=== PATIENT | female | born 1965 | race Caucasian/White ===

== ENCOUNTER 2018-07-26 10:32 | Outpatient (CLI) | payer OTHER, SELFPAY ==
--- NOTE | 2018-07-26 15:40 | DI.RAD_ITS ---
SYMPTOM/DIAGNOSIS: CHRONIC RT KNEE PAIN, G89.29 RIGHT KNEE: There is mild narrowing of the medial femoral tibial joint space and periarticular spurring as well as mild sclerosis. Slight spurring is seen from the lateral femoral condyle and lateral tibial plateau as well as tibial spines and femoral intercondylar notch. Mild spurring is seen at the patellofemoral joint. No joint effusion is visible. The bones appear normally mineralized. IMPRESSION: Mild to moderate degenerative changes of the medial femoral tibial joint.
== END 2018-07-26 10:52 ==
PROVIDERS: PCP Family Medicine; Visit Provider Internal Medicine
DX: M25.561 Pain in right knee (principal); M17.11 Unilateral primary osteoarthritis, right knee; G89.29 Other chronic pain
CPT/HCPCS: 73562

== ENCOUNTER 2018-08-25 09:14 | Outpatient (CLI) | payer OTHER, SELFPAY ==
--- NOTE | 2018-08-25 09:11 | DI.RAD_ITS ---
SYMPTOM/DIAGNOSIS: RT KNEE PAIN RIGHT KNEE: Two views. Comparison is made with 07/26/18. There is moderate narrowing and periarticular spurring in the medial femoral tibial joint space. There is mild periarticular spurring of the lateral femoral tibial joint. The bones are intact and normally mineralized. IMPRESSION: Moderate degenerative changes of the right knee.
== END 2018-08-25 09:34 ==
PROVIDERS: PCP Family Medicine; Visit Provider Student in an Organized Health Care Education/Training Program
DX: M25.561 Pain in right knee (principal); M17.11 Unilateral primary osteoarthritis, right knee
CPT/HCPCS: 73560

== ENCOUNTER 2018-09-05 18:44 | Outpatient (REF) | payer OTHER, SELFPAY ==
[2018-09-05 19:52] LABS: ALT 43 U/L (12-78); AST 23 U/L (15-37); Albumin 3.9 g/dL (3.4-5.0); Alkaline Phosphatase 40 U/L (46-116); Anion Gap 11.6 mmol/L (3-11); BUN 18 mg/dL (7-18); Bilirubin, Total 0.4 mg/dL (0.2-1.0); C-Reactive Protein 0.14 mg/dL (0.0-0.3); CO2 26.4 mmol/L (21.0-32.0); CREATININE 0.83 mg/dL (0.55-1.02); Chloride 99 mmol/L (98-107); Glucose 78 mg/dL (70-100); Potassium 3.7 mmol/L (3.5-5.1); Sodium 137 mmol/L (136-145); Total Protein 7.1 g/dL (6.4-8.2)
[2018-09-05 20:25] LABS: Bilirubin Negative (Negative); Blood Negative (Negative); Clarity Clear; Glucose Negative (Negative); Ketones Negative (Negative); Leukocyte Esterase Small (Negative); Nitrite Negative (Negative); Specific Gravity 1.015 (1.005-1.025); Urobilinogen 0.2 EU/dL (Up TO 0.2); pH 6.5 (5-8)
[2018-09-05 20:42] LABS: Bacteria Few HPF (Negative); C & S Indicated? Yes; Casts Negative LPF (Negative); Crystals Negative HPF (Negative); Epithelial Cells Few HPF (Negative); Mucus Negative (Negative); RBC Negative (0-2); WBC 20-50 HPF (0-5)
[2018-09-05 23:07] LABS: Abs Immature Grans 0.01 k/cumm (0.0-0.09); Absolute Basophil Count 0.02 k/cumm (0.0-0.2); Absolute Eosinophil Count 0.31 k/cumm (0.0-0.7); Absolute Lymphocyte Count 2.99 k/cumm (1.2-3.4); Absolute Monocyte Count 0.82 k/cumm (0.11-0.7); Absolute Neutrophil Count 3.54 k/cumm (1.2-6.7); Basophils % 0.3; HCT 37.4 % (36.0-46.0); HGB 12.8 g/dL (12.0-15.5); Immature Grans % 0.1; Lymphocytes % 38.9; Mean Corp. HGB Concentration 34.2 g/dL (32.0-36.0); Mean Corpuscular Hemoglobin 30.6 pg (27.0-33.0); Mean Corpuscular Volume 89.5 fL (80-95); Mean Platelet Volume 11.8 fL (8.0-11.0); Monocytes % 10.7; Platelet Count 186 x1000/uL (130-400); RBC 4.18 m/cumm (4.00-5.20); RBC Distribution Width 13.2 % (11.7-14.6); White Blood Cell Count 7.69 k/cumm (4.4-10.8)
[2018-09-06 13:21] LABS: Calcium 9.1 mg/dL (8.5-10.1)
[2018-09-07 11:22] LABS: C3 Complement 102 mg/dL (81-157); C4 Complement 22 mg/dL (13-39)
== END 2018-09-05 19:04 ==
LOC: LBN 18:44
PROVIDERS: PCP Family Medicine; Visit Provider Internal Medicine
DX: M35.1 Other overlap syndromes (principal); I10 Essential (primary) hypertension
CPT/HCPCS: 80053; 81003; 81015; 85025; 86140; 86160; 87086

== ENCOUNTER 2018-10-13 00:14 | Outpatient (CLI) | payer OTHER, SELFPAY ==
--- NOTE | 2018-10-13 13:30 | DI.MAMMO_ITS ---
SYMPTOM/DIAGNOSIS: SCREENING, Z12.31 MAMMOGRAMS: Mammograms were interpreted according to the usual protocol including computer analysis with CAD system, tomosynthesis and C view imaging. Comparison is made with the prior examinations. No suspicious masses or microcalcifications are seen. There is no definite evidence of malignancy. IMPRESSION: Negative mammogram. Routine screening is recommended. Category 1 , breast density B. MQSA ASSESSMENT OF FINDINGS: Negative. Category 1. Patient will receive a letter notifying them of these results. BI-RADS category B. There are scattered areas of fibroglandular density.
== END 2018-10-13 00:34 ==
PROVIDERS: PCP Family Medicine; Visit Provider Family Medicine
DX: Z12.31 Encounter for screening mammogram for malignant neoplasm of breast (principal)
CPT/HCPCS: 77063; 77067

== ENCOUNTER 2019-11-08 11:45 | Outpatient (CLI) | payer OTHER, SELFPAY ==
--- NOTE | 2019-11-08 11:36 | DI.RAD_ITS ---
EXAM: XR KNEE LT 2V AP,LAT CLINICAL HISTORY: knee pain TECHNIQUE: The study was performed according to the usual protocol. COMPARISON: XR knee RT 2V AP,lat from 08/25/2018 FINDINGS: Two views were obtained. There are mild marginal osteophytes of all 3 joints of the knee. There may be mild narrowing of cartilaginous joint spaces. This is difficult to evaluate due to obliquity on t hese images. No other significant bony abnormality seen.
--- NOTE | 2019-11-08 11:42 | DI.RAD_ITS ---
EXAM: XR STANDING ALIGNMENT CLINICAL HISTORY: knee pain COMPARISON: No exams were available for comparison FINDINGS: AP views of both lower extremities were obtained using standing alignment protocol. There are mild d egenerative changes of both hips. There is a calcified uterine fibroid. There are marked degenerati ve changes of the medial tibiofemoral joints bilaterally.
== END 2019-11-08 12:05 ==
PROVIDERS: PCP Family Medicine; Visit Provider Physician Assistant
DX: M25.562 Pain in left knee (principal); M25.762 Osteophyte, left knee; M16.0 Bilateral primary osteoarthritis of hip; D25.9 Leiomyoma of uterus, unspecified
CPT/HCPCS: 73560; 77073

== ENCOUNTER 2020-04-05 03:20 | Outpatient (REF) | payer OTHER, SELFPAY ==
--- NOTE | 2020-04-04 15:20 | PAPFT_PTH ---
PATIENT: Reyna Isbell LOC: [facility] U#:[id number] AGE/SX: 54/F ROOM: RE04/05/[address]: SIMRAN Alexandra : 1965 BED: DIS: 04/05/2020 SPEC #: [id number] RECD: 04/07/20 12:58 STATUS: DEVI REQ #: [id number] KIMBERLY: 04/04/20 15:[address]: Kimber Fernández DEPT: [facility] Cytology RECD BY: Nayla Owusu ENTERED: 04/07/20 12:59 SP TYPE: PAPFT OTHR DR: Dl Copeland MD Tissues: 1 - CX/ENDOCX FOR PAP SMEARS Procedures: PAP THIN PREP/UVM Screening HPV DNA PROBE Comments: [id number]
== END 2020-04-05 03:40 ==
LOC: LBN 03:20
PROVIDERS: PCP Family Medicine; Visit Provider Nurse Practitioner Family
DX: Z12.4 Encounter for screening for malignant neoplasm of cervix (principal); Z11.51 Encounter for screening for human papillomavirus (HPV); R87.610 Atypical squamous cells of undetermined significance on cytologic smear of cervix (ASC-US)
CPT/HCPCS: 88142; 87624

== ENCOUNTER 2020-07-01 08:19 | Outpatient (REF) | payer OTHER, SELFPAY ==
[2020-07-01 20:49] LABS: HCT 38.3 % (36.0-46.0); HGB 12.6 g/dL (11.2-15.7); MCH 30.3 pg (27.0-33.0); MCHC 32.9 % (32.0-36.0); MCV 92.1 fL (80-95); MPV 11.6 fL (8.0-11.0); Platelet Count 215 10^3/uL (130-400); RBC 4.16 10^6/uL (3.93-5.22); RDW-SD 40.4 fL; WBC 5.23 10^3/uL (4.4-10.8)
[2020-07-01 20:56] LABS: ALT 51 U/L (14-59); AST 27 U/L (15-37); Albumin 4.1 g/dL (3.4-5.0); Alkaline Phosphatase 31 U/L (46-116); BUN 22 mg/dL (7-18); Bilirubin, Total 0.5 mg/dL (0.2-1.0); C-Reactive Protein 0.08 mg/dL (0.0-0.3); CREATININE 0.83 mg/dL (0.55-1.02); Calcium 9.2 mg/dL (8.5-10.1); Chloride 101 mmol/L (98-107); Glucose 98 mg/dL (74-106); Potassium 4.7 mmol/L (3.5-5.1); Sodium 136 mmol/L (136-145); Total Protein 7.5 g/dL (6.4-8.2)
[2020-07-01 21:42] LABS: ESR 22 mm/hr (0-30)
== END 2020-07-01 08:39 ==
LOC: LBN 08:19
PROVIDERS: Student in an Organized Health Care Education/Training Program; PCP Family Medicine; Visit Provider Nurse Practitioner
DX: M17.0 Bilateral primary osteoarthritis of knee (principal); M35.1 Other overlap syndromes
CPT/HCPCS: 80053; 85027; 85652; 86140

== ENCOUNTER 2020-07-11 08:13 | Outpatient (CLI) | payer OTHER, SELFPAY ==
[2020-07-12 14:40] LABS: COVID-19 RT-PCR Result NEGATIVE (Negative)
== END 2020-07-11 08:33 ==
PROVIDERS: Student in an Organized Health Care Education/Training Program; PCP Family Medicine; Visit Provider Family Medicine
DX: Z11.59 Encounter for screening for other viral diseases (principal); Z01.818 Encounter for other preprocedural examination
CPT/HCPCS: U0003

== ENCOUNTER 2020-07-15 08:25 | Observation (INO) | payer OTHER, SELFPAY ==
[2020-07-15] VITALS (11 sets, daily range): BP systolic 89–123; BP diastolic 49–73; PULSE 47–71; RESP 13–18; TEMP 35.7–37.1; O2SAT 96–100
[2020-07-15] MEDS: Gabapentin 300 MG CAP PO ×2 (09:07→21:55)
[2020-07-15] MEDS: Celecoxib 200 MG CAP 400 MG PO (09:07)
[2020-07-15] MEDS: Acetaminophen 500 MG TAB 1000 MG PO ×3 (09:07→19:44)
[2020-07-15] MEDS: Lactated Ringers 1,000 ML 80 ML IV (09:08)
--- NOTE | 2020-07-15 09:45 | W.PM.DS.N ---
Documented by User: MARIE Anderson 07/15/20 09:46 Discharge Plan Disposition Patient Disposition: HOME Condition: Good Discharge Details Reason For Visit: BILATERAL TKA Admit Date/Time: 07/15/20 08:25 Admit Provider: Alphonso Gonsalves Attending Provider: Alphonso Gonsalves Primary Care Provider: Dl Copeland Hospital Course Hospital Course: Patient was admitted to the medical/surgical floor following the procedure. The surgery was tolerated well without any notable medical, surgical, or anesthetic complications. Mobilization began postoperatively. The moore catheter was removed and she was voiding spontaneously. Initial mobilization was complicated by some lightheadedness and resultant hypotension. However, this responded with rest. A postoperative hemoglobin was checked, resulted at 9.7. She responded to fluid bolus and some time with minimal lightheadedness later on postoperative day #1. Physical therapy worked with the patient and was cleared for discharge home. No acute medical issues. Pain was controlled on oral regimen. Home Meds and New Rx's Prescriptions: New acetaminophen [Tylenol Extra Strength] 500 mg tablet 500 mg PO Q6H PRNQty: 90 RF: 0 ibuprofen 600 mg tablet 600 mg PO TID Qty: 90 RF: 0 oxycodone 5 mg tablet 5 mg PO Q4H PRNQty: 18 RF: 0 pantoprazole [Protonix] 40 mg tablet,delayed release (DR/EC) 40 mg PO DAILY Qty: 30 RF: 0 rivaroxaban 10 mg tablet 10 mg PO QPM Qty: 30 RF: 0 docusate sodium [Colace] 100 mg capsule 100 mg PO BID PRNQty: 10 RF: 0 gabapentin 300 mg capsule 300 mg PO QHS Qty: 14 RF: 0 Continued hydroxychloroquine [Plaquenil] 200 MG tablet 400 mg PO DAILY RF: 0 fluticasone propionate 16 GM spray,suspension 2 spry NS DAILY Qty: 3 RF: 3 Discontinued ibuprofen 200 mg Tablet 800 mg PO PRN PRNRF: 0 Discharge Instructions Additional Instructions: Total Knee Discharge Instructions Activity: The most important activity is to walk. You should try to take short walks a few times a day. It is important that when resting you work on keeping the knee straight. Avoid putting a pillow behind the knee as this will encourage flexion. Work on range of motion exercises as provided by Physical Therapy. - Start outpatient physical therapy within 2 weeks. - You should wear the GUERITA hose on both legs for 2 weeks. Dressing: Keep the surgical dressing in place for at least one week. After the first week it may be removed and replace with light gauze and tape or nothing. It may get wet after 3 days but avoid soaking the dressing. If it gets wet, just lightly pat dry. Medications: - You should take Tylenol and anti-inflammatory Ibuprofen as your primary pain control medications - You have been prescribed a stronger pain medication Oxycodone for breakthrough pain, take as needed as prescribed. - You have also been prescribed a stomach acid reduction agent Pantoprozole to help reduce stomach acid and reflux. - You will be taking Rivaroxaban 10mg daily for DVT prevention unless instructed otherwise. - You have Gabapentin to take at night for the first 14 days to treat nerve pain and restlessness. - If you have constipation you should take Colace or Miralax (both [id number]) - Colace was called in. It takes most people 3-4 days to have a bowel movement. Follow-up: 2 weeks Stand Alone Forms: Nursing Discharge Form Referrals: Alphonso Gonsalves MD [ [facility] STAFF PHYSICIAN] - 07/31/20 11:15 am Activity:: Activity as Tolerated Equipment/Supplies:: Walker Diet:: As Tolerated Discharge Orders Discharge Orders: Discharge Order (Routine); Ordered 07/16/20 Ordered By: Alphonso Gonsalves DS: Data Vitals/I&O Vitals and I&O: Vital Signs Temperature 97.5 F L 07/15/20 08:57 Pulse 71 07/15/20 08:57 Pulse Rhythm Regular 07/15/20 08:57 Respiratory Rate 18 07/15/20 08:57 Respiratory Effort 07/15/20 08:57 Respiratory Depth Normal 07/15/20 08:57 Blood Pressure 118/73 07/15/20 08:57 Pulse Oximetry 97 07/15/20 08:57 Oxygen Delivery Method Room Air 07/15/20 08:57 Oxygen Flow Rate 0 07/15/20 08:57 Intake & Output 07/14/20 07/14/20 07/15/20 11:59 23:59 11:59 Weight 205 lb 11.06 oz [facility] [place] Medical History (Updated 07/16/20 @ 09:28 by Alphonso Gonsalves MD) Adopted (Inactive) Condyloma latum in female (Acute) Dermatitis (Inactive 06/22/17) [facility] [place]-[facility] MCTD (mixed connective tissue disease) (Acute) Social History Smoking/Tobacco Use Status: Never Alcohol Intake: current Alcohol Intake frequency: holidays/special occasions only Drug use: Never Substance use type: does not use 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 Documented by User: Alphonso Gonsalves MD 07/16/20 10:16 Date of service: 07/16/20 Time of Service: 12:27 DS: Diagnosis Discharge Diagnosis (1) Primary osteoarthritis of right knee: Status: Acute (2) Primary osteoarthritis of left knee: Status: Acute Discharge Plan Disposition Patient Disposition: HOME Condition: Good Discharge Details Reason For Visit: BILATERAL TKA Admit Date/Time: 07/15/20 08:25 Admit Provider: Alphonso Gonsalves Attending Provider: Alphonso Gonsalves Primary Care Provider: Dl Copeland Hospital Course Hospital Course: Patient was admitted to the medical/surgical floor following the procedure. The surgery was tolerated well without any notable medical, surgical, or anesthetic complications. Mobilization began postoperatively. The moore catheter was removed and she was voiding spontaneously. Initial mobilization was complicated by some lightheadedness and resultant hypotension. However, this responded with rest. A postoperative hemoglobin was checked, resulted at 9.7. She responded to fluid bolus and some time with minimal lightheadedness later on postoperative day #1. Physical therapy worked with the patient and was cleared for discharge home. No acute medical issues. Pain was controlled on oral regimen. Home Meds and New Rx's Prescriptions: New acetaminophen [Tylenol Extra Strength] 500 mg tablet 500 mg PO Q6H PRNQty: 90 RF: 0 ibuprofen 600 mg tablet 600 mg PO TID Qty: 90 RF: 0 oxycodone 5 mg tablet 5 mg PO Q4H PRNQty: 18 RF: 0 pantoprazole [Protonix] 40 mg tablet,delayed release (DR/EC) 40 mg PO DAILY Qty: 30 RF: 0 rivaroxaban 10 mg tablet 10 mg PO QPM Qty: 30 RF: 0 docusate sodium [Colace] 100 mg capsule 100 mg PO BID PRNQty: 10 RF: 0 gabapentin 300 mg capsule 300 mg PO QHS Qty: 14 RF: 0 Continued hydroxychloroquine [Plaquenil] 200 MG tablet 400 mg PO DAILY RF: 0 fluticasone propionate 16 GM spray,suspension 2 spry NS DAILY Qty: 3 RF: 3 Discontinued ibuprofen 200 mg Tablet 800 mg PO PRN PRNRF: 0 Discharge Instructions Additional Instructions: Total Knee Discharge Instructions Activity: The most important activity is to walk. You should try to take short walks a few times a day. It is important that when resting you work on keeping the knee straight. Avoid putting a pillow behind the knee as this will encourage flexion. Work on range of motion exercises as provided by Physical Therapy. - Start outpatient physical therapy within 2 weeks. - You should wear the GUERITA hose on both legs for 2 weeks. Dressing: Keep the surgical dressing in place for at least one week. After the first week it may be removed and replace with light gauze and tape or nothing. It may get wet after 3 days but avoid soaking the dressing. If it gets wet, just lightly pat dry. Medications: - You should take Tylenol and anti-inflammatory Ibuprofen as your primary pain control medications - You have been prescribed a stronger pain medication Oxycodone for breakthrough pain, take as needed as prescribed. - You have also been prescribed a stomach acid reduction agent Pantoprozole to help reduce stomach acid and reflux. - You will be taking Rivaroxaban 10mg daily for DVT prevention unless instructed otherwise. - You have Gabapentin to take at night for the first 14 days to treat nerve pain and restlessness. - If you have constipation you should take Colace or Miralax (both [id number]) - Colace was called in. It takes most people 3-4 days to have a bowel movement. Follow-up: 2 weeks Stand Alone Forms: Nursing Discharge Form Referrals: Alphonso Gonsalves MD [ [facility] STAFF PHYSICIAN] - 07/31/20 11:15 am Activity:: Activity as Tolerated Equipment/Supplies:: Walker Diet:: As Tolerated Discharge Orders Discharge Orders: Discharge Order (Routine); Ordered 07/16/20 Ordered By: Alphonso Gonsalves DS: Summary Status at Discharge Functional status at discharge: uses cane/walker Overall status at discharge: patient is progressing back to baseline Mental Status: mental status grossly normal Speech and Movement: speech and movement normal Mood: congruent mood Affect: normal affect Exam Psych Mental Status: mental status grossly normal Speech and Movement: speech and movement normal Mood: congruent mood Affect: normal affect [facility] Medical History (Updated 07/16/20 @ 09:28 by Alphonso Gonsalves MD) Adopted (Inactive) Condyloma latum in female (Acute) Dermatitis (Inactive 06/22/17) [facility]-[facility] MCTD (mixed connective tissue disease) (Acute) Social History Smoking/Tobacco Use Status: Never Alcohol Intake: current Alcohol Intake frequency: holidays/special occasions only Drug use: Never Substance use type: does not use 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
[2020-07-15] MEDS: ceFAZolin 2 GM/50 ML BAG IVPB (10:50)
[2020-07-15] MEDS: Normal Saline 20 ML VIAL (11:30)
[2020-07-15] MEDS: Bupivacaine 0.25% Pres-Free 30 ML VIAL (11:30)
[2020-07-15] MEDS: Ketorolac 30 MG/ML VIAL (11:30)
--- NOTE | 2020-07-15 13:51 | W.PM.OP ---
Date of service: 07/15/20 Time of Service: 13:51 Operative Note Operative Note DATE OF PROCEDURE: 07/15/20 PRE-OP DIAGNOSIS: Bilateral Knee Osteoarthritis POST-OP DIAGNOSIS: same PROCEDURE: Bilateral Total Knee Replacement SURGEON: Alphonso Gonsalves INSPECTOR MACHINED PARTS: Gina Aldana ANESTHESIA: regional and spinal ESTIMATED BLOOD LOSS: 300 PATHOLOGY: none sent TOURNIQUET TIME: 0 COMPLICATIONS: None Patient was transported to: PACU Patient's condition: stable Implants: RIGHT: 1. Depuy Attune Cementless Cruciate Retaining Femoral Component, Size 5 2. Depuy Attune Cementless Rotating Platform Tibial Component, Size 4 3. Depuy Attune 5x10 CR/RP Poly 4. Depuy Attune Patellar Component, Size 35 LEFT: 1. Depuy Attune Cementless Cruciate Retaining Femoral Component, Size 5 2. Depuy Attune Cementless Rotating Platform Tibial Component, Size 4 3. Depuy Attune 5x5 CR/RP Poly 4. Depuy Attune Patellar Component, Size 35 Indications: I have seen Reyna in clinic for symptoms of bilateral knee arthritis, confirmed with radiographic findings. She has exhausted nonoperative methods and was having significant limitations in daily function and desired better function and less pain. I discussed the technical details of a knee replacement. I explained the risks of the procedure to include, but not limited to, bleeding, infection, pain, stiffness, fracture, damage to nerves and vessels, damage to muscles and tendons, loosening, need for repeat procedure, blood clot and cardiopulmonary demise. Despite these risks, Reyna elected to proceed. Findings: There was significant signs of arthritis throughout both knees. Both knees were similar with wear in all 3 compartments, most over the medial tibia as well as deformity of the medial aspect of the lateral femoral condyle. Procedure Description: Reyna was greeted in the preoperative holding area where the correct side was identified and marked. The consent was reviewed with the patient and signed. The history and physical was updated. All questions were answered. Preoperative medications were administered: Acetaminophen 1000mg, Celebrex 400mg, and Gabapentin 300mg. An adductor canal block of both knees was then administered by the anesthesia team in the PACU. Reyna was taken back to the operating room. A spinal anesthestic was then administered. The patient was placed into the supine position on the operating room table. A nonsterile tourniquet was placed high onto the leg but only used for cementing. Posts were placed for positioning during the procedure. All bony prominences were well padded. Prophylactic antibiotics in the form of Cefazolin were administered. 1g of Tranxemic Acid was given intravenously within 30 minutes of incision of the first knee, right knee. Both legs were then prepped with Chloraprep and draped in a standard fashion with impervious stockinette. A second prep with Chloraprep was performed prior to application of Iodine impregnated skin protection on the right knee while the left knee was left in the stockinette. A timeout to confirm correct identity, side and site, procedure, allergies, anesthesia, and medical concerns was performed. RIGHT KNEE: With the knee in some flexion, a midline incision was made overlying the knee. Full thickness skin flaps were raised once the extensor mechanism was encountered. These were raised medially and laterally. Any bleeding was controlled with electrocautery. Once the extensor mechanism was fully exposed, a medial parapatellar arthrotomy was performed in a flexed position. All bleeding from the arthrotomy and the geniculate arteries was coagulated. A medial subperiosteal peel was performed with electrocautery to the midcoronal plane. The fat pad was removed while keeping the patellar tendon protected. The anterior distal femur synovium was removed for later visualization. The ACL and PCL were resected and the anterior horn of the lateral meniscus was transected. The knee was then flexed with the patella everted. Using a step drill, and based on preoperative templating, the femoral canal was entered. This was done with a step drill without any difficulty. The intramedullary distal femoral cut guide was inserted, set to a 5 degree valgus cut and 9mm cut thickness. There was some irregularity to the distal, lateral femur, mostly over the medial surface. The distal femoral cut guide was then held in position and pinned. With the soft tissues protected, the distal cut was performed. This was passed over a few times to ensure a planar cut. I then turned attention to the tibia. The extramedullary guide was placed onto the leg. The distal aspect was slid medial to adjust for position of center of ankle and stay in line with shaft of the tibia. Approximately 3-5 degrees of posterior slope was kept in the proximal cutting guide. The center of the guide was aligned with the PCL. The stylus was used to assess cut thickness. The medial side, most involved side, was set for a 4mm cut, corresponding to 9mm laterally. This was then held in position and pinned into place with 2 additional pins and a cross pin for stability. The medial and lateral collateral ligaments were protected and the cut was performed. With this completed, it was assessed and noted to be thicker than planned, measuring 6-7mm over the medial aspect and 12 laterally. The guide was removed. A spacer block was inserted and the knee was brought into extension. The 10mm spacer block provided full extension, without hyperextension and with stability of both the medial and lateral collateral ligaments was assessed. The pins from the femur and the tibia were then removed. The distal femur was then sized. The anterior stylus was placed onto the lateral ridge of the anterior femur. This indicated a size 5 femur. The external rotation of the guide was adjusted to match the epicondylar axis, perpendicular to Joe?s line. The 4-in-1 cutting guide was the placed. The posterior medial femur cut was evaluated and appeared of good thickness. The spacer block was inserted underneath the cutting guide and stability was confirmed in 90 degrees of flexion. An nikolai wing was used to confirm appropriate position of the anterior cut to avoid notching. This cutting guide was ensured to be flush on the cut surface and then pinned into place with headed pins. While protecting the soft tissues, quad tendon, and collateral ligaments, the anterior and posterior cuts were performed with a saw. The central two pins were removed and the posterior and anterior chamfers were cut next. The notch-cutting guide was placed. This was pinned to lateralize the femoral component as much as possible while keeping it flush on the cut surface. This was then pinned into position. A reciprocating saw was used to make the notch cut. A rasp smoothed the cut surfaces. The medial and lateral menisci were removed. A trial femoral component was then inserted, impacted down to the cut surfaces, and the lug holes were drilled. A provisional trial tibial component was placed and the knee was brought through range of motion. There was noted to be excellent extension and flexion. There was no significant instability. The patella was tracking without thumbs. A size 10mm polyethylene component provided the best range of motion and stability with less than 2mm gapping with medial and lateral stress and full extension without significant hyperextension. The tibial cut surface was fully exposed. The tibia was then sized as a 4. The tibia had been previously marked during trialing to correspond to the center of the tibial component to help with rotation. The trial was aligned to this mendy, approximately rotated to the medial 1/3rd of the tibial tubercle. The trial was pinned into place. The tibia was prepared with a reamer and a keel punch and lug holes. The knee was then brought into extension and the patella was measured as 23mm. Using the patellar clamp and cut guide, this was resected to a flat surface with at least 13mm of thickness remaining. The size 35 patella fit the best. This was oriented and then clamped into position. The lugs were drilled. The trial components were removed. The final components were opened on the back table. The periosteal and capsular tissues, especially posteriorly, around the knee were then systematically injected with a periarticular cocktail consisting of 50cc 0.25% Marcaine, 30mg Ketorolac, 20cc of Exparal and 50cc of injectable saline. The knee was thoroughly irrigated with a pulse lavage and dried. Irrisept was also used to irrigate the tissues. On the back table, with the implants opened, the cement was mixed. One batche of high viscosity cement were prepared with vacuum assistance. After the cement was ready a small amount was placed on the cut surface of the patella and the patellar button was clamped into position and held. During this process attention was turned to the gutters of the knee and for all interfaces for any excess cement. While the cement was hardening, the cementless knee components were placed. Starting with the tibial component, the tibia was subluxed anteriorly and the lug holes of the component were lined up. The tibia was then impacted with an impactor and mallet until the tibial component was in contact with the tibia. The final polyethylene component was inserted. Then, the femoral component was inserted. The lug holes were aligned and the component was impacted into position. The knee was irrigated with Irrisept chlorhexadine solution. This was allowed to sit in the knee for 3 minutes. After the cement had finally cured, approximately 15min, the clamp was removed from the patella and the knee was taken through range of motion. The patella was tracking with a no-thumbs technique. The capsule was then reapproximated with a No. 1 Vicryl at multiple locations. The capsule was finally closed with a No. 2 Stratafix, barbed suture. The second dosing of 1g TXA was started. Deep tissues were then reapproximated with 0 Vicryl and 2-0 Vicryl. The skin was closed with a running 3-0 Monocryl in a subcuticular fashion. This was reinforced with skin glue. A Mepilex silver dressing was applied. LEFT KNEE: While Gina Aldana PA-C, was closing the skin and subcutaneous tissues of the right knee, proceed with the left knee. The stockinette was opened and the knee was prepped with ChloraPrep, followed by Ioban dressing. With the knee in some flexion, a midline incision was made overlying the knee. Full thickness skin flaps were raised once the extensor mechanism was encountered. These were raised medially and laterally. Any bleeding was controlled with electrocautery. Once the extensor mechanism was fully exposed, a medial parapatellar arthrotomy was performed in a flexed position. All bleeding from the arthrotomy and the geniculate arteries was coagulated. A medial subperiosteal peel was performed with electrocautery to the midcoronal plane. The fat pad was removed while keeping the patellar tendon protected. The anterior distal femur synovium was removed for later visualization. The ACL and PCL were resected and the anterior horn of the lateral meniscus was transected. The knee was then flexed with the patella everted. Large osteophytes from the tibia were removed. Large osteophytes from the femur were removed. Using a step drill, and based on preoperative templating, the femoral canal was entered. This was done with a step drill without any difficulty. The intramedullary distal femoral cut guide was inserted, set to a 5 degree valgus cut and 9 mm cut thickness. There was some irregularity, mostly on the medial surface of the lateral femoral condyle. The distal femoral cut guide was then held in position and pinned. With the soft tissues protected, the distal cut was performed. This was passed over a few times to ensure a planar cut. I then turned attention to the tibia. The extramedullary guide was placed onto the leg. The distal aspect was slid medial to adjust for position of center of ankle and stay in line with shaft of the tibia. Approximately 3-5 degrees of posterior slope was kept in the proximal cutting guide. The center of the guide was aligned with the PCL. The stylus was used to assess cut thickness. The medial side, most involved side, was set for a 2mm cut, corresponding 8 mm laterally. This was then held in position and pinned into place with 2 additional pins and a cross pin for stability. The medial and lateral collateral ligaments were protected and the cut was performed. With this completed, it was assessed and noted to be of appropriate dimensions. The guide was removed. A spacer block was inserted and the knee was brought into extension. The 5mm spacer block provided full extension, without hyperextension and with stability of both the medial and lateral collateral ligaments was assessed. The pins from the femur and the tibia were then removed. The distal femur was then sized. The anterior stylus was placed onto the lateral ridge of the anterior femur. This indicated a size 5 femur. The external rotation of the guide was adjusted to match the epicondylar axis, perpendicular to [place]?s line. The 4-in-1 cutting guide was the placed. The posterior medial femur cut was evaluated and appeared of good thickness. The spacer block was inserted underneath the cutting guide and stability was confirmed in 90 degrees of flexion. An nikolai wing was used to confirm appropriate position of the anterior cut to avoid notching. This cutting guide was ensured to be flush on the cut surface and then pinned into place with headed pins. While protecting the soft tissues, quad tendon, and collateral ligaments, the anterior and posterior cuts were performed with a saw. The central two pins were removed and the posterior and anterior chamfers were cut next. The notch-cutting guide was placed. This was pinned to lateralize the femoral component as much as possible while keeping it flush on the cut surface. This was then pinned into position. A reciprocating saw was used to make the notch cut. A rasp smoothed the cut surfaces. The medial and lateral menisci were removed. A trial femoral component was then inserted, impacted down to the cut surfaces, and the lug holes were drilled. A provisional trial tibial component was placed and the knee was brought through range of motion. There was noted to be excellent extension and flexion. There was no significant instability. The patella was tracking without thumbs. A size 5mm polyethylene component provided the best range of motion and stability with less than 2mm gapping with medial and lateral stress and full extension without significant hyperextension. The tibial cut surface was fully exposed. The tibia was then sized as a 4. The tibia had been previously marked during trialing to correspond to the center of the tibial component to help with rotation. The trial was aligned to this mendy, approximately rotated to the medial 1/3rd of the tibial tubercle. The trial was pinned into place. The tibia was prepared with a reamer and a keel punch and lug holes. The knee was then brought into extension and the patella was measured as 24mm. Using the patellar clamp and cut guide, this was resected to a flat surface with at least 13mm of thickness remaining. The size 35 patella fit the best. This was oriented and then clamped into position. The lugs were drilled. The trial components were removed. The final components were opened on the back table. The periosteal and capsular tissues, especially posteriorly, around the knee were then systematically injected with a periarticular cocktail consisting of 50cc 0.25% Marcaine, 30mg Ketorolac, 20cc of Exparal and 50cc of injectable saline. The knee was thoroughly irrigated with a pulse lavage and dried. Irrisept was also used to irrigate the tissues. On the back table, with the implants opened, the cement was mixed. One batche of high viscosity cement were prepared with vacuum assistance. After the cement was ready a small amount was placed on the cut surface of the patella and the patellar button was clamped into position and held. During this process attention was turned to the gutters of the knee and for all interfaces for any excess cement. While the cement was hardening, the cementless knee components were placed. Starting with the tibial component, the tibia was subluxed anteriorly and the lug holes of the component were lined up. The tibia was then impacted with an impactor and mallet until the tibial component was in contact with the tibia. The final polyethylene component was inserted. Then, the femoral component was inserted. The lug holes were aligned and the component was impacted into position. The knee was irrigated with Irrisept chlorhexadine solution. This was allowed to sit in the knee for 3 minutes. After the cement had finally cured, approximately 15min, the clamp was removed from the patella and the knee was taken through range of motion. The patella was tracking with a no-thumbs technique. The capsule was then reapproximated with a No. 1 Vicryl at multiple locations. The capsule was finally closed with a No. 2 Stratafix, barbed suture. Deep tissues were then reapproximated with 0 Vicryl and 2-0 Vicryl. The skin was closed with a running 3-0 Monocryl in a subcuticular fashion. This was reinforced with skin glue. A Mepilex silver dressing was applied along with a [id number] wrap applied to both knees. A CryoCuff was applied to both knees. Reyna was transferred to the hospital bed without difficulty an suffering no apparent complication. Reyna has a good prognosis. Physical therapy will start today and without restrictions, weight-bearing as tolerated. Rivaroxaban 10 mg daily will be used for DVT prophylaxis.
[2020-07-15] MEDS: ceFAZolin 1 GM/50 ML BAG IVPB (15:24)
--- NOTE | 2020-07-15 17:08 | IN_ITS ---
Date of service: 07/15/20 Time of Service: 17:08 PT Notes Visit Reasons: BILATERAL TKA Physical Therapy Inpatient Initial Evaluation Date: 07/15/2020 Referring Doctor: Alphonso Gonsalves MD PT Orders: PT CONSULT: Status post Ortho surgery Precautions: Fall. Standard. WBAT on BLE. Patient Profile/Admitting Diagnosis: Reyna is a 55-year-old female with primary bilateral osteoarthritis of the right and the left knee and is status post bilateral total knee arthroplasty on postoperative day 0. 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 She is independent with all aspects of ADLs without the need for an assistive ambulatory device nor adaptive equipment. 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 Equipment Owned/DME: None Subjective: Reyna reports being lightheaded when she first sat up on the edge of bed. Symptom got worse in the standing position and mobility assessment was deferred. After about half an hour, Reyna reports being better after having eaten supper. She is determined to try get up and walk and was happy that she did. Significant other present during both PT consult sessions. Objective: General Observation: Cryo/Cuff to bilateral knees. Mukesh wraps to bilateral knees. IV in the right UE. Mental Status: Alert and oriented x4 Pain: 3/10 in bilateral knees Vital Signs: Hypotensive episode at 9T/60 mmHg while seated in bed. Patient was too lightheaded to stay up for the standing blood pressure measurement on initial PT consult. ROM: Right Upper Extremity: Shoulder Flexion WFL. Shoulder abduction WFL. Elbow flexion WFL. Wrist flexion WFL. Opening and closing of hand WFL. Left Upper Extremity: Shoulder Flexion WFL. Shoulder abduction WFL. Elbow flexion WFL. Wrist flexion WFL. Opening and closing of hand WFL. Right Lower Extremity: Hip flexion WFL. Hip abduction WFL. Knee flexion 0 to 90 degrees. Ankle dorsiflexion WFL. Ankle plantarflexion WFL. Left Lower Extremity: Hip flexion WFL. Hip abduction WFL. Knee flexion 0 to 98 degrees. Ankle dorsiflexion WFL. Ankle plantarflexion WFL. Strength: Right Upper Extremity: Shoulder flexors 5/5. Shoulder abductors 5/5. Elbow flexors 5/5. Elbow extensors 5/5. Combine Operator strong. Left Upper Extremity: Shoulder flexors 5/5. Shoulder abductors 5/5. Elbow flexors 5/5. Elbow extensors 5/5. Combine Operator strong. Right Lower Extremity: Hip flexors 4/5. Hip abductors 5/5. Knee flexors 3-/5. Knee extensors 3+/5. Ankle dorsiflexors 5/5. Ankle plantarflexors 5/5. Left Lower Extremity:Hip flexors 4/5. Hip abductors 5/5. Knee flexors 3-/5. Knee extensors 3+/5. Ankle dorsiflexors 5/5. Ankle plantarflexors 5/5. Sensation: Numbness in both thighs reported but intact from knees down as to pain and light pressure. Bed Mobility/Transfers: Supine to sit standby assist Sit to supine standby assist Sit to stand contact-guard assist Stand to sit contact-guard assist Bed to chair contact-guard assist Gait: Deferred gait activity during first visit due to hypotensive episode during initial PT visit. For the second visit half an hour later, patient was able to tolerate about 250 feet of level surface ambulation using a front wheeled walker with contact-guard assist and IV pole management of PT and wheelchair follow of nurse Archuleta. Reciprocal step-through heel-toe gait pattern. No increase in pain reported in B knees. THERA EX: Education and training on gluteal setting, quadriceps setting, and ankle pumps be done 10-20 times every hour was done as well during the session. Balance: Static Sitting: Normal Dynamic Sitting: Normal Static Standing: Fair Dynamic Standing: Fair Special Tests: Mobility Limitations Standardized Measure [facility] AM-PAC 6 clicks Basic Mobility Inpatient Short Form: Raw Score: 18 CMS Score: 47% deficit Informed Consent/Education: Patient instructed in purpose of PT consult and plan of care. Assessment: Reyna demonstrates a need for a front wheeled walker and contact- guard assist for safety for all mobility ADL performance, faculty with walking, unsteadiness of gait, and decreased active knee range of motion due to postoperative status. Reyna is a 55-year-old female with primary bilateral osteoarthritis of the right and the left knee and is status post bilateral total knee arthroplasty on postoperative day 0. Patient presents with clinical signs and symptoms consistent with current/admitting diagnoses that have resulted to mobility limitations, gait instability, generalized weakness, and impairment of motor control as demonstrated by the following impairment level findings: 1. Decreased strength to B quadricep 2. Impaired sitting/standing balance 3. Impaired activity tolerance 4. Limitation of joint range of motion in B knee flexion Impairments are contributing to the following functional limitations: 1. Dependent bed mobility skills 2. Increased dependence with transfers 3. Inability to safely ambulate without assistive device and physical assistance 4. Increase completion time for mobility ADL performance 5. Increased fall risk 6. Inability to negotiate steps alone safely Patient is assessed as a 60518 moderate complexity based on the following: History: 55-year-old female with impairment level findings, functional limitations, and past medical history as indicated above Examination: Demonstrable impairment in strength, balance, and mobility level with underlying impairments and functional limitations as documented above Presentation:Evolving Decision Makin moderate complexity Goals: Goals X 2 days 1. Supine-Sit independent 2. Sit-Supine independent 3. Sit-Stand independent 4. Stand-Sit independent 5. Bed-Chair independent 6. Chair-Bed independent 7. Supervision gait on level surface with use of least restrictive device for at least 300 feet without report of pain nor dyspnea 8. Supervision stair negotiation while holding onto bilateral rails for at least 10 steps without report of pain nor dyspnea 9. Independent with home exercise program 10. Good static and dynamic standing balance/tolerance Plan of Care/Treatment Plan: 1-2x/day, 7 days/week x 1 week. Plan of care has been reviewed with the [employer] providing the service under Physical Therapy direction. Initiate Physical Therapy intervention for strengthening, bed mobility, transfers, gait, stairs, balance training, use of assistive device. PT Intervention: Session today consisted of initial physical therapy evaluation as well as education and training on safe mobility ADL performance using front wheeled walker. Reyna and her significant other Merry were also educated and introduced to seated level and standing level exercises targeting individual muscle groups that Reyna can do while recovering at home in order to maximize functional mobility outcomes after B TKA. DISCHARGE RECOMMENDATIONS: Home when medically cleared by orthopedic surgeon. Patient will benefit from outpatient services in order to regain premorbid independent level and promote return to vocational activities. TREATMENT CODE/TIME: 47793 x 30 minutes, 62996 x 17 minutes beginning at 4:10 PM and 5:08 PM. Thank you for the opportunity to participate in the care of this patient. Stefany Pina PT, DPT, CLT [facility] [place], [place]
[2020-07-15] MEDS: oxyCODONE 5 MG TAB PO ×2 (18:29→21:55)
[2020-07-15] MEDS: Docusate Sodium 100 MG CAP PO (19:45)
[2020-07-15] MEDS: Rivaroxaban 10 MG TABLET PO (19:45)
[2020-07-15] MEDS: Celecoxib 200 MG CAP PO (19:45)
[2020-07-16] MEDS: HYDROmorphone 2 MG/ML VIAL 0.5 MG IVP ×2 (00:14→04:53)
[2020-07-16] MEDS: ceFAZolin 1 GM/50 ML BAG IVPB ×2 (00:15→09:06)
[2020-07-16 00:22] VITALS: BP 97/64
[2020-07-16 03:33] VITALS: BP 106/63; PULSE 61; RESP 18; TEMP 36.8; O2SAT 99
[2020-07-16] MEDS: Normal Saline Flush 10 ML SYR (05:17)
[2020-07-16] MEDS: oxyCODONE 5 MG TAB PO ×2 (08:09→13:48)
[2020-07-16] MEDS: Celecoxib 200 MG CAP PO (08:10)
[2020-07-16] MEDS: Hydroxychloroquine 200 MG TAB 400 MG PO (08:10)
[2020-07-16] MEDS: Acetaminophen 500 MG TAB 1000 MG PO ×2 (08:10→13:49)
[2020-07-16] MEDS: Pantoprazole 40 MG TABCR PO (08:10)
[2020-07-16 08:18] VITALS: BP 96/62; PULSE 72; RESP 18; TEMP 36.8; O2SAT 96
[2020-07-16] MEDS: Normal Saline 500 ML 30 ML IVPB (09:08)
[2020-07-16] MEDS: Lactated Ringers 1,000 ML 1000 ML IV (10:06)
[2020-07-16 10:10] LABS: HCT 28.4 % (36.0-46.0); HGB 9.7 g/dL (11.2-15.7)
[2020-07-16 11:18] VITALS: BP 111/70; PULSE 63; RESP 19; TEMP 36.4; O2SAT 98
--- NOTE | 2020-07-16 13:27 | PDOC.CMDIS ---
- If Service Date Differs Date of service: 07/16/20 Time of Service: 13:27 LACE Index Scoring Tool - Questions: Length of Stay (in days): 1 Acuity (Admit via E.D.?): No E.D. Visits: 0 - Answers: Total Score: 1 Risk of Readmission: Low Risk Care Management Discharge Reason for Hospitalization: Bilat TKA Discharge Plan: Reyna is being discharged home today she was provided a FWW no other needs identified she has transporation home and states her needs have been met. Reyna looks good upright in the chair she worked with PT and her spouse Merry is present and supportive. Patient/Family Education Needs: Discharge education, limitations and follow up plan of care.
[2020-07-17 10:45] LABS: C3 Complement 74 mg/dL (81-157); C4 Complement 17 mg/dL (13-39)
--- NOTE | 2020-07-21 18:00 | PT.INDS ---
Date of service: 07/23/20 PT Notes Visit Reasons: BILATERAL TKA Inpatient Physical Therapy Discharge Summary Dates: 07/21/2020 Dates of Service: 07/15/2020 through 07/16/2020 Referring Doctor: Alphonso Gonsalves MD PT Orders: PT CONSULT: Status post Ortho surgery Precautions: Fall. Standard. WBAT on BLE. Patient Profile/Admitting Diagnosis: Reyna is a 55-year-old female with primary bilateral osteoarthritis of the right and the left knee and is status post bilateral total knee arthroplasty on postoperative day 0. 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 She is independent with all aspects of ADLs without the need for an assistive ambulatory device nor adaptive equipment. 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 Equipment Owned/DME: None Subjective: Reyna looks forward to going home and is confident about the support that she will get from significant other at home. She received HEP and has been instructed about exercises that she may do to tolerance while recovering at home. Objective: General Observation: Cryo/Cuff to bilateral knees. Mukesh wraps to bilateral knees. IV in the right UE. Mental Status: Alert and oriented x4 Pain: 3/10 in bilateral knees Vital Signs: Hypotensive episode at 9T/60 mmHg while seated in bed. Patient was too lightheaded to stay up for the standing blood pressure measurement on initial PT consult. ROM: Right Upper Extremity: Shoulder Flexion WFL. Shoulder abduction WFL. Elbow flexion WFL. Wrist flexion WFL. Opening and closing of hand WFL. Left Upper Extremity: Shoulder Flexion WFL. Shoulder abduction WFL. Elbow flexion WFL. Wrist flexion WFL. Opening and closing of hand WFL. Right Lower Extremity: Hip flexion WFL. Hip abduction WFL. Knee flexion 0 to 90 degrees. Ankle dorsiflexion WFL. Ankle plantarflexion WFL. Left Lower Extremity: Hip flexion WFL. Hip abduction WFL. Knee flexion 0 to 98 degrees. Ankle dorsiflexion WFL. Ankle plantarflexion WFL. Strength: Right Upper Extremity: Shoulder flexors 5/5. Shoulder abductors 5/5. Elbow flexors 5/5. Elbow extensors 5/5. Warp Dresser strong. Left Upper Extremity: Shoulder flexors 5/5. Shoulder abductors 5/5. Elbow flexors 5/5. Elbow extensors 5/5. Warp Dresser strong. Right Lower Extremity: Hip flexors 4/5. Hip abductors 5/5. Knee flexors 3-/5. Knee extensors 3+/5. Ankle dorsiflexors 5/5. Ankle plantarflexors 5/5. Left Lower Extremity:Hip flexors 4/5. Hip abductors 5/5. Knee flexors 3-/5. Knee extensors 3+/5. Ankle dorsiflexors 5/5. Ankle plantarflexors 5/5. Sensation: Numbness in both thighs reported but intact from knees down as to pain and light pressure. Bed Mobility/Transfers: Supine to sit standby assist Sit to supine standby assist Sit to stand standby assist Stand to sit standby assist Bed to chair standby assist Gait: 50 feet + 50 feet with FWW with WBAT on B LE with SBA. Reyna did not report any clamminess, dizziness, and with increased riky compared to yesterday. NO buckling observed in B LE. THERA EX: Education and training on gluteal setting, quadriceps setting, and ankle pumps be done 10-20 times every hour was done as well during the session. Balance: Static Sitting: Normal Dynamic Sitting: Normal Static Standing: Fair Dynamic Standing: Fair Assessment: Reyna continues to demonstrate a need for a front wheeled walker and contact-guard assist for safety for all mobility ADL performance, faculty with walking, unsteadiness of gait, and decreased active knee range of motion due to postoperative status. Reyna is a 55-year-old female with primary bilateral osteoarthritis of the right and the left knee and is status post bilateral total knee arthroplasty on postoperative day 1. Her hospital stay was complicated by episodes of dizziness related to low hematocrit. She has good support from significant other and has needed AD at home. Patient presents with clinical signs and symptoms consistent with current/admitting diagnoses that have resulted to mobility limitations, gait instability, generalized weakness, and impairment of motor control as demonstrated by the following impairment level findings: 1. Decreased strength to B quadriceps 2. Impaired standing balance 3. Impaired activity tolerance 4. Limitation of joint range of motion in B knee flexion Impairments are contributing to the following functional limitations: 1. Inability to safely ambulate without assistive device and physical assistance 2. Increase completion time for mobility ADL performance 3. Increased fall risk 4. Inability to negotiate steps alone safely Goals: Goals X 2 days 1. Supine-Sit independent NOT MET 2. Sit-Supine independent NOT MET 3. Sit-Stand independent NOT MET 4. Stand-Sit independent NOT MET 5. Bed-Chair independent NOT MET 6. Chair-Bed independent NOT MET 7. Supervision gait on level surface with use of least restrictive device for at least 300 feet without report of pain nor dyspnea NOT MET 8. Supervision stair negotiation while holding onto bilateral rails for at least 10 steps without report of pain nor dyspnea NOT MET 9. Independent with home exercise program NOT MET 10. Good static and dynamic standing balance/tolerance NOT MET DISCHARGE RECOMMENDATIONS: Home when medically cleared by orthopedic surgeon. Patient will benefit from outpatient services in order to regain premorbid independent level and promote return to vocational activities. TREATMENT CODE/TIME: 48275 x 26 minutes beginning at 12:33 PM. Thank you for the opportunity to participate in the care of this patient. Stefany Pina PT, DPT, CLT [facility] [place], [place]
== END 2020-07-16 14:23 | disposition home or self-care (01) ==
LOC: PDS 14:18 → MS 14:19
PROVIDERS: Family Medicine; Admitting Provider Student in an Organized Health Care Education/Training Program; PCP Family Medicine; Visit Provider Student in an Organized Health Care Education/Training Program
PROC: 0SRC0JZ Replacement of Right Knee Joint with Synthetic Substitute, Open Approach (ICD-10-PCS; CPT 27447; principal; 2020-07-15 11:30)
DX: M17.11 Unilateral primary osteoarthritis, right knee (principal); M17.12 Unilateral primary osteoarthritis, left knee; M25.561 Pain in right knee; M25.562 Pain in left knee; M35.1 Other overlap syndromes; Z96.653 Presence of artificial knee joint, bilateral; I95.81 Postprocedural hypotension
CPT/HCPCS: 27447; C1776; 76942; 97163; 97530; NC; 85014; 85018; 86160; G0378; J0690; J1885; J2001; J2250; J2405

== ENCOUNTER 2020-07-31 14:09 | Outpatient (CLI) | payer OTHER, SELFPAY ==
--- NOTE | 2020-07-31 11:15 | DI.RAD_ITS ---
EXAM: XR KNEE RT 1V INDICATION: 1ST POST OP R TKA. COMPARISON: CR XR knee RT 2V AP,lat from 08/25/2018 CR XR KNEE LT 2V AP,LAT from 11/08/2019 CR XR STANDING ALIGNMENT from 11/08/2019 CR XR STANDING ALIGNMENT from 07/31/2020 TECHNIQUE: 2D digital imaging was performed. FINDINGS: Bilateral total knee prostheses are now seen. No abnormality is seen in the surrounding bone. There is no significant overall leg length discrepancy. The hips and ankles are unremarkable. Calcified uterine fibroids are incidentally noted. DATA REPOSITORY: RADIATION DOSE DELIVERED:
== END 2020-07-31 14:29 ==
PROVIDERS: PCP Family Medicine; Referring Provider Family Medicine; Visit Provider Student in an Organized Health Care Education/Training Program
DX: Z96.653 Presence of artificial knee joint, bilateral (principal)
CPT/HCPCS: 73560; 77073

== ENCOUNTER 2020-10-22 01:23 | Outpatient (CLI) | payer OTHER, SELFPAY ==
--- NOTE | 2020-10-22 07:31 | DI.US_ITS ---
APPROVED REPORT EXAM: Comprehensive 2D, Doppler, and color-flow Echocardiogram Patient Location: Out-Patient Host/Hostess Head: Corazon Guzman RDCS (AE) Indications: Mixed connective tissue disease Other Information Study Quality: Adequate Conclusion Normal left ventricular wall thickness and chamber size. Estimated ejection fraction is 55 to 60%. There are no segmental wall motion abnormalities Normal right ventricular size and systolic function Both atria are normal in size The aortic valve is trileaflet with trace regurgitation The mitral valve is structurally normal with trace regurgitation Tricuspid valve is structurally normal with trace regurgitation. Normal estimated right ventricular systolic pressure The pulmonic valve is not well visualized Wall motion Left Ventricle The left ventricle is normal size. The left ventricular systolic function is normal. The left ventric ular ejection fraction is within the normal range. There is normal left ventricular wall thickness. T here is normal LV segmental wall motion. There is no ventricular septal defect visualized. LVEF is 55 -60%. Right Ventricle The right ventricle is normal size. The right ventricular systolic function is normal. The RVSP is 13 .2 mmHg. Atria The left atrium size is normal. The right atrium size is normal. The interatrial septum is intact wit h no evidence for an atrial septal defect. Aortic Valve The aortic valve is normal in structure. Aortic valve is trileaflet. There is no aortic valvular sten osis. Trace aortic regurgitation. Mitral Valve The mitral valve is normal in structure. No evidence of mitral valve stenosis. Trace mitral regurgita tion. Tricuspid Valve The tricuspid valve is normal in structure. There is no tricuspid valve stenosis. Trace tricuspid reg urgitation. Pulmonic Valve Pulmonic valve is not well visualized. There is no pulmonic valvular stenosis. There is no pulmonic v alvular regurgitation. Great Vessels The aortic root is normal in size. The ascending aorta is normal in size. Aortic arch is normal in ca liber. IVC is normal in size and collapses >50% with inspiration. Pericardium There is no pericardial effusion. 2D Dimensions IVSD d PLAX 0.95 cm F: 0.6-1.0 LV Vol A2C d MOD 167.0 mL LVPW d PLAX 0.96 cm F: 0.6 - 1.0 LV Vol A4C d MOD 134.2 mL LVID d PLAX 5.16 cm F: 3.8 - 5.2 LA vol/ BSA A2C s A-L 36.9 mL/m2 LVDs 3.55 cm F: 2.2 - 3.5 LA vol/ BSA A4C s A-L 25.5 mL/m2 Ao Root d 2.57 cm F: 2.7 - 3.3 LA Vol/ BSA Biplane s A-L 31.3 mL/m2 RA Area A4C 17.59 cm2 LA Area A4C s MOD 17.97 cm2 RA Vol/ BSA A4C s A-L 25.3 mL/m2 LA Area A2C s MOD 21.17 cm2 Ao Asc Diam d 2.99 cm F: 2.3 - 3.1 LV EF A4C MOD 55.3 % LV EF Teichholz 58.3 % LV EF A2C MOD 60.5 % LVEF (Mujica's) 58.23 % F: 54 - 74 LV EF Biplane MOD 58.2 % LV Volume 114.66 mL F: 46 - 106 SV 88.64 mL LV Volume Index 58.20 mL/m2 F: 29 - 61 SV Index 44.89 mL/m2 LV Vol Biplane MOD 152.2 mL FS 30.95 % M-Mode TAPSE 2.98 cm (M/F) >1.7 LV Diastology MV E' medial 0.148 (>0.07 m/s) E/A Ratio 1.3 LV E/e MED 5.85 (<14) MV E Vmax 0.87 (0.4-1.3 m/s) MV E' lateral 0.125 (>0.1 m/s) MV A Vmax 0.65 (0.4-1.3 m/s) LV E/e LAT 6.95 (<14) MV E/A Ratio 1.28 MV E/E' medial 5.88 MV E/E' lateral 6.98 Aortic Valve LVOT Area 3.19 cm2 AoV Area Vmax 2.56 cm2 LVOT Vmax 0.98 m/s AoV Area/ BSA (Vmax) 1.30 cm2/m2 LVOT Mean Jarvis. 0.68 m/s EVA Mean Jarvis. 2.52 cm2 LVOT Peak Grad 3.9 mmHg EVA Mean Jarvis. Index 1.28 cm2/m2 LVOT Mean Grad 2.1 mmHg LVOT VTI 0.245 m LVOT Diam s 2.00 cm AoV Vmax 1.22 m/s Velocity Ratio 0.80 AoV Mean Jarvis. 0.86 m/s AoV Peak Grad 6.0 mmHg LVOT SV 78.11 mL AoV Mean Grad 3.3 mmHg AoV VTI 0.303 m AoV Area VTI 2.58 cm2 AoV Area/ BSA (VTI) 1.31 cm/m2 Mitral Valve MV DT 168 (160-240 msec) MV PHT 49 msec MV Area PHT 4.52 cm2 Pulmonary Valve PV Vmax 0.73 (0.5-1.5 m/s) RVOT Peak Gr. 1.12 mmHg PV Peak Grad 2.2 mmHg RVOT Mean Gr. 0.65 mmHg PV Mean Grad 1.4 mmHg RVOT VTI 0.164 m PV VTI 0.202 m RVOT Vmax 0.53 m/s Tricuspid Valve TR Peak Grad 10.2 mmHg TR Vmax 1.60 m/s RA Pressure 3.00 mmHg RVSP (TR) 13.2 mmHg
== END 2020-10-22 01:43 ==
PROVIDERS: PCP Family Medicine; Visit Provider Internal Medicine
DX: M35.1 Other overlap syndromes (principal)
CPT/HCPCS: 93306

== ENCOUNTER 2021-03-27 08:59 | Outpatient (CLI) | payer OTHER, SELFPAY ==
[2021-03-27] MEDS: Albuterol HFA 18 GM 200 PUFF INH IH (16:06)
[2021-03-27] MEDS: Inhaler, Assist Device 1 EACH MC (16:07)
== END 2021-03-27 09:00 | disposition home or self-care (01) ==
LOC: RT 09:02
PROVIDERS: PCP Family Medicine; Visit Provider Family Medicine
DX: J44.9 Chronic obstructive pulmonary disease, unspecified (principal); M35.1 Other overlap syndromes
CPT/HCPCS: 94060; 94726; 94729

== ENCOUNTER 2021-05-01 02:13 | Outpatient (CLI) | payer OTHER, SELFPAY ==
--- NOTE | 2021-05-01 07:30 | DI.MAMMO_ITS ---
Exam(s) MAMMO SCREENING EXAM: MAMMO SCREENING CLINICAL HISTORY: screening, Z12.39. TECHNIQUE: Bilateral full field digital CC and MLO mammographic images were obtained with 3D tomosyn thesis and utilizing computer aided detection (CAD). COMPARISON: Prior mammograms dating back to 2011, the most recent being September 2018. FINDINGS: There has been no significant change in the appearance and distribution of the fibroglandular tissue. There are no new significant radiograph findings in the right breast. Posteriorly in the left breast there is a group of microcalcifications up again suggest wall, not pre viously present. However, these presently exhibited benign punctate appearance. Recommend six-month follow-up. There are no new masses in left breast. There is no significant architectural distortion nor skin thickening-retraction. IMPRESSION: No radiographic evidence of malignancy right breast. Microcalcification group located posteriorly in the left breast, presently benign appearance. Recomm end six-month follow-up. These are located 15 cm in from the nipple. BI-RADS Category 3 - 6 month - Probably Benign Finding: Recommend follow-up mammography in 6 months Breast Density - Category B - Scattered areas of fibroglandular density Breast density Category C or D implies that the patient has dense breast tissue. Dense breast tissue can make it harder to find cancer on a mammogram. Dense breast tissue is also associated with an incr eased risk of breast cancer. This information about the result of the mammogram report was provided to the patient to raise their awareness. Use this report when you speak with the patient about their risks for breast cancer, which includes their family history. At that time, you may recommend additional screening tests (Ultrasoun d or MRI) as these tests may add significant information. A negative radiographic report should not delay biopsy if a dominant or clinically suspicious mass is present. Up to ten percent of cancers are not identified on mammography. A negative report may reinforce clinical impression. Adenosis and dense breasts may obscure an underlying neoplasm. False positive reports average 6 to 10%. Patient will receive a letter notifying them of these results.
== END 2021-05-01 02:33 ==
PROVIDERS: PCP Family Medicine; Visit Provider Nurse Practitioner Family
DX: Z12.31 Encounter for screening mammogram for malignant neoplasm of breast (principal); R92.8 Other abnormal and inconclusive findings on diagnostic imaging of breast
CPT/HCPCS: 77063; 77067

== ENCOUNTER 2021-07-17 03:15 | Outpatient (CLI) | payer OTHER, SELFPAY ==
--- NOTE | 2021-07-17 07:00 | DI.MAMMO_ITS ---
Exam(s) MG MAMMO DIAGNOSTIC UNI EXAM: MAMMO DIAGNOSTIC UNI CLINICAL HISTORY: Call back Left as recommended by [facility] [place], F/U ABNL MAMMO, R92.8 TECHNIQUE: Mammograms were interpreted according to the usual protocol including computer analysis w [facility] CAD system, tomosynthesis and C-view imaging. COMPARISON: FINDINGS: Today's examination was obtained to evaluate microcalcifications of the upper outer quadrant of the l eft breast seen on prior mammogram of April. On today's examination including spot magnification view s these are seen to be punctate and well-circumscribed. These are likely to represent benign acinar microcalcifications. No suspicious microcalcification seen. IMPRESSION: No specific evidence of malignancy. Follow-up unilateral left breast mammogram recommended in 6 awa hs. BI-RADS Category 3 - 6 month - Probably Benign Finding: Recommend follow-up mammography in 6 months Breast Density - Category B - Scattered areas of fibroglandular density
== END 2021-07-17 03:35 ==
PROVIDERS: PCP Family Medicine; Visit Provider Nurse Practitioner Family
DX: R92.8 Other abnormal and inconclusive findings on diagnostic imaging of breast (principal); R92.0 Mammographic microcalcification found on diagnostic imaging of breast
CPT/HCPCS: 77061; 77065; G0279

== ENCOUNTER 2021-10-23 10:55 | Outpatient (CLI) | payer OTHER, SELFPAY ==
--- NOTE | 2021-10-23 09:30 | DI.RAD_ITS ---
Exam(s) XR KNEE RT 2V AP,LAT EXAM: XR KNEE RT 2V AP,LAT CLINICAL HISTORY: annual f/u bilat TKA. TECHNIQUE: 2D digital imaging was performed of the right knee. Two views obtained. AP and lateral views were obtained. COMPARISON: CR XR KNEE RT 1V from 07/31/2020 CR XR KNEE RT 1V from 07/31/2020 FINDINGS: BONES: No acute fracture is present. No bony destructive lesion is seen. Enthesophytes are seen at th e superior and inferior patella. JOINTS: There are stable postsurgical changes of a right total knee replacement. No joint effusion i s seen. SOFT TISSUE: Normal. IMPRESSION: Stable right total knee replacement. DATA REPOSITORY: RADIATION DOSE DELIVERED:
--- NOTE | 2021-10-23 09:30 | DI.RAD_ITS ---
Exam(s) XR KNEE LT 2V AP,LAT EXAM: XR KNEE LT 2V AP,LAT CLINICAL HISTORY: ANNUAL F/U BILAT TKA. TECHNIQUE: 2D digital imaging was performed of the left knee. Two images were obtained. AP and lat eral views were obtained. COMPARISON: CR XR KNEE LT 1V from 07/31/2020 FINDINGS: BONES: No acute fracture is present. No bony destructive lesion is seen. There is an enthesophyte at the superior patella. JOINTS: There are stable postsurgical changes of a left total knee replacement. No evidence of hardwa re failure. No joint effusion is seen. SOFT TISSUE: Atherosclerosis is present. IMPRESSION: Stable left TKR. DATA REPOSITORY: RADIATION DOSE DELIVERED:
== END 2021-10-23 10:56 | disposition home or self-care (01) ==
LOC: DIORS 10:55
PROVIDERS: PCP Family Medicine; Visit Provider Student in an Organized Health Care Education/Training Program
DX: Z96.653 Presence of artificial knee joint, bilateral (principal)
CPT/HCPCS: 73560

== ENCOUNTER 2021-11-04 10:44 | Outpatient (REF) | payer OTHER, SELFPAY ==
[2021-11-05 02:30] LABS: COVID-19 RT-PCR UVMMC Result Negative (Negative)
== END 2021-11-04 10:45 | disposition home or self-care (01) ==
LOC: LBN 10:44
PROVIDERS: PCP Family Medicine; Visit Provider Nurse Practitioner Family
DX: Z20.822 Contact with and (suspected) exposure to COVID-19 (principal)
CPT/HCPCS: U0003

== ENCOUNTER → 2022-05-14 00:32 | Outpatient (CLI) | payer OTHER, SELFPAY ==
--- NOTE | 2022-05-14 07:45 | DI.MAMMO_ITS ---
Exam(s) MAMMO DIAGNOSTIC BI EXAM: MAMMO DIAGNOSTIC BI CLINICAL HISTORY: f/u [facility] MAMMO, R92.8 TECHNIQUE: Bilateral full field digital CC and MLO mammographic images were obtained with 3D tomosyn thesis and utilizing computer aided detection (CAD). COMPARISON: Available for comparison. FINDINGS: Masses/Architectural Distortion: None seen. Microcalcifications: No suspicious pleomorphic-type are seen. Skin Thickening/Nipple Retraction: None. IMPRESSION: 1. No significant interval change with no specific features of malignancy noted. 2. Unless there is more urgent need, screening mammography is recommended, as per [place] [employer] guidelines. 3. Results of this exam have been verbally communicated with provider. BI-RADS Category 1 - Negative Breast Density - Category B - Scattered areas of fibroglandular density Breast density category C or D implies that the patient has dense breast tissue. Dense breast tissue is very common and is not abnormal but dense breast tissue can make it harder to find cancer on a ma mmogram. Also, dense breast tissue may increase their breast cancer risk. This information about the result of the mammogram report was provided to the patient to raise their awareness. Use this report when you speak with the patient about their risks for breast cancer, which includes their family hist ory. At that time, you may recommend for more screening tests (Ultrasound or MRI) as they might be us eful based on their risk. A negative radiographic report should not delay biopsy if a dominant or clinically suspicious mass is present. Up to ten percent of cancers are not identified on mammography. A negative report may reinforce clinical impression. Adenosis and dense breasts may obscure an underlying neoplasm. False positive reports average 6 to 10%. Patient will receive a letter notifying them of these results.
== END ==
PROVIDERS: PCP Family Medicine; Visit Provider Nurse Practitioner Women's Health
DX: R92.2 Inconclusive mammogram (principal)
CPT/HCPCS: 77062; 77066; G0279

== ENCOUNTER 2022-05-18 15:06 | Outpatient (REF) | payer OTHER, SELFPAY ==
[2022-05-18 16:48] LABS: Absolute Basophil Count 0.03 10^3/uL (0.0-0.2); Absolute Eosinophil Count 0.14 10^3/uL (0.0-0.7); Absolute Lymphocyte Count 1.14 10^3/uL (1.2-3.4); Absolute Monocyte Count 0.74 10^3/uL (0.1-0.8); Absolute Neutrophil Count 3.32 10^3/uL (1.2-6.7); Basophils % 0.6; Eosinophils % 2.6; HCT 39.5 % (36.0-46.0); HGB 13.8 g/dL (11.2-15.7); Lymphocytes % 21.2; MCH 30.5 pg (27.0-33.0); MCHC 34.9 % (32.0-36.0); MCV 87 fL (80-95); MPV 10.4 fL (8.0-11.0); Monocytes % 13.8; Neutrophils % 61.8; Platelet Count 232 10^3/uL (130-400); RBC 4.53 10^6/uL (3.93-5.22); RDW-SD 38.4 fL; WBC 5.37 10^3/uL (4.4-10.8)
[2022-05-18 16:57] LABS: ALT 36 U/L (14-59); AST 29 U/L (15-37); Albumin 4.2 g/dL (3.4-5.0); Alkaline Phosphatase 38 U/L (46-116); Anion Gap 9.5 mmol/L (3-11); BUN 15 mg/dL (7-18); Bilirubin, Total 0.6 mg/dL (0.2-1.0); CO2 27.5 mmol/L (21.0-32.0); Calcium 9.1 mg/dL (8.5-10.1); Chloride 100 mmol/L (98-107); Estimated GFR 57.35 (mL/min/1.73m2); Glucose 95 mg/dL (74-106); Potassium 3.9 mmol/L (3.5-5.1); Sodium 137 mmol/L (136-145); Total Protein 7.8 g/dL (6.4-8.2)
[2022-05-18 17:50] LABS: Bilirubin Negative (Negative); Blood Negative (Negative); Clarity Clear (Clear); Glucose Negative (Negative); Ketones Negative (Negative); Leukocyte Esterase Small (Negative); Nitrite Negative (Negative); Specific Gravity 1.025 (1.005-1.025); Urobilinogen 0.2 EU/dL (Up TO 0.2)
[2022-05-18 18:39] LABS: Bacteria Negative HPF (Negative); Casts Negative LPF (Negative); Crystals Negative HPF (Negative); Epithelial Cells Moderate HPF (Negative); Mucus Negative (Negative); Other Cells Negative (Negative); RBC Negative HPF (0-2)
[2022-05-18 18:40] LABS: C & S Indicated? No/Sq. Contamination
[2022-05-19 08:15] LABS: Calculated LDL 158 mg/dL (<100); Cholesterol 219 mg/dL (<200); HDL Cholesterol 51 mg/dL (40-60); Triglyceride 52 mg/dL (<150)
[2022-05-20 08:42] LABS: C3 Complement 109 mg/dL (81-157); C4 Complement 29 mg/dL (13-39)
[2022-05-20 12:40] LABS: dsDNA Ab, IgG <12.3 IU/mL (<30.0)
== END 2022-05-18 15:07 | disposition home or self-care (01) ==
LOC: LBN 15:06
PROVIDERS: PCP Family Medicine; Visit Provider Internal Medicine
DX: Z00.00 Encounter for general adult medical examination without abnormal findings (principal); I10 Essential (primary) hypertension; M35.1 Other overlap syndromes
CPT/HCPCS: 80053; 80061; 81003; 81015; 85025; 86160; 86225

== ENCOUNTER → 2022-09-10 00:19 | Outpatient (CLI) | payer OTHER, SELFPAY ==
--- NOTE | 2022-09-10 11:30 | DI.US_ITS ---
APPROVED REPORT EXAM: Comprehensive 2D, Doppler, and color-flow Echocardiogram Patient Location: Out-Patient Physician Credentialing Specialist: Corazon Guzman RDCS (AE) Indications: Mixed connective tissue disorder Other Information Study Quality: Adequate Conclusion Normal left ventricular wall thickness and chamber size. Estimated ejection fraction is 60%. Wall m otion is normal Normal right ventricular size and systolic function Both atria are normal in size There is no structural or hemodynamically significant valvular disease Wall motion Left Ventricle The left ventricle is normal size. The left ventricular systolic function is normal. The left ventric ular ejection fraction is within the normal range. There is normal left ventricular wall thickness. T here is normal LV segmental wall motion. There is no ventricular septal defect visualized. LVEF is 60 %. Right Ventricle The right ventricle is normal size. The right ventricular systolic function is normal. Atria The left atrium size is normal. The right atrium size is normal. The interatrial septum is intact wit h no evidence for an atrial septal defect. Aortic Valve The aortic valve is normal in structure. Aortic valve is trileaflet. There is no aortic valvular sten osis. No aortic regurgitation is present. Mitral Valve The mitral valve is normal in structure. No evidence of mitral valve stenosis. Trace mitral regurgita tion. Tricuspid Valve The tricuspid valve is normal in structure. There is no tricuspid valve stenosis. Trace tricuspid reg urgitation. Unable to assess PA pressure. Pulmonic Valve The pulmonary valve is normal in structure. There is no pulmonic valvular stenosis. There is no pulmo lolita valvular regurgitation. Great Vessels The aortic root is normal in size. Ascending aorta is not well visualized. Aortic arch is normal in c aliber. IVC is normal in size and collapses >50% with inspiration. Pericardium There is no pericardial effusion. 2D Dimensions IVSD d PLAX 0.92 cm F: 0.6-1.0 LV Vol A2C d MOD 126.1 mL LVPW d PLAX 0.94 cm F: 0.6 - 1.0 LV Vol A4C d MOD 110.8 mL LVID d PLAX 4.99 cm F: 3.8 - 5.2 LA vol/ BSA A2C s A-L 24.5 mL/m2 LVDs 3.25 cm F: 2.2 - 3.5 LA vol/ BSA A4C s A-L 19.8 mL/m2 Ao Root d 2.76 cm F: 2.7 - 3.3 LA Vol/ BSA Biplane s A-L 23.2 mL/m2 RA Area A4C 12.29 cm2 LA Area A4C s MOD 14.97 cm2 RA Vol/ BSA A4C s A-L 14.8 mL/m2 LA Area A2C s MOD 15.83 cm2 LV EF Teichholz 62.8 % LV EF A4C MOD 59.8 % LVEF ([employer]) 57.79 % F: 54 - 74 LV EF A2C MOD 60.0 % LV Volume 92.04 mL F: 46 - 106 LV EF Biplane MOD 57.8 % LV Volume Index 49.21 mL/m2 F: 29 - 61 SV 69.32 mL LV Vol Biplane MOD 119.9 mL SV Index 37.06 mL/m2 FS 34.05 % M-Mode TAPSE 2.68 cm (M/F) >1.7 LV Diastology MV E' medial 0.090 (>0.07 m/s) E/A Ratio 1.1 LV E/e MED 7.65 (<14) MV E Vmax 0.69 (0.4-1.3 m/s) MV E' lateral 0.093 (>0.1 m/s) MV A Vmax 0.65 (0.4-1.3 m/s) LV E/e LAT 7.45 (<14) MV E/A Ratio 1.00 MV E/E' medial 7.67 MV E/E' lateral 7.47 Aortic Valve LVOT Area 3.42 cm2 AoV Area Vmax 2.42 cm2 LVOT Vmax 0.98 m/s AoV Area/ BSA (Vmax) 1.29 cm2/m2 LVOT Mean Jarvis. 0.68 m/s EVA Mean Jarvis. 2.48 cm2 LVOT Peak Grad 3.9 mmHg EVA Mean Jarvis. Index 1.33 cm2/m2 LVOT Mean Grad 2.1 mmHg LVOT VTI 0.219 m LVOT Diam s 2.05 cm AoV Vmax 1.39 m/s Velocity Ratio 0.70 AoV Mean Jarvis. 0.94 m/s AoV Peak Grad 7.7 mmHg LVOT SV 74.84 mL AoV Mean Grad 3.9 mmHg AoV VTI 0.287 m AoV Area VTI 2.61 cm2 AoV Area/ BSA (VTI) 1.40 cm/m2 Mitral Valve MV DT 238 (160-240 msec) MV PHT 69 msec MV Area PHT 3.18 cm2 MV VTI 0.269 m MV Area VTI 2.78 (4.0-6.0 cm2) Pulmonary Valve PV Vmax 0.79 (0.5-1.5 m/s) RVOT Peak Gr. 1.56 mmHg PV Peak Grad 2.5 mmHg RVOT Mean Gr. 0.80 mmHg PV Mean Grad 1.3 mmHg RVOT VTI 0.131 m PV VTI 0.157 m RVOT Vmax 0.63 m/s
== END ==
PROVIDERS: PCP Family Medicine; Visit Provider Internal Medicine
DX: M35.9 Systemic involvement of connective tissue, unspecified (principal)
CPT/HCPCS: 93306

== ENCOUNTER 2022-09-10 02:10 | Outpatient (CLI) | payer OTHER, SELFPAY ==
[2022-09-10] MEDS: Albuterol HFA 18 GM 200 PUFF INH IH (10:54)
[2022-09-10] MEDS: Inhaler, Assist Device 1 EACH MC (10:54)
--- NOTE | 2022-09-14 09:03 | W.PFT ---
Date of service: 09/10/22 Time of Service: 09:57 Pulmonary Function Test Result Requesting Provider Lowell Borrego Indications: Mixed CTD, screening Interpretation Spirometry: There is no airflow limitation. There is no bronchodilator response. Lung Volumes: Lung volumes are normal. Diffusion Capacity: Normal diffusion Airway Pressure: Normal airways resistance. Impression Normal pulmonary function testing. Note: When compared to 03/27/21, the FEV1 and FVC have improved. The diffusion capacity has decreased however from 18.34 to 16.67. Clinical Correlation therefore is recommended.
== END 2022-09-10 02:11 | disposition home or self-care (01) ==
LOC: RT 02:10
PROVIDERS: PCP Family Medicine; Visit Provider Internal Medicine
DX: M35.1 Other overlap syndromes (principal); J98.4 Other disorders of lung
CPT/HCPCS: 94060; 94726; 94729

== ENCOUNTER 2022-10-22 08:29 | Outpatient (CLI) | payer OTHER, SELFPAY ==
--- NOTE | 2022-10-22 08:15 | DI.RAD_ITS ---
Exam(s) XR KNEE LT 2V AP,LAT EXAM: XR KNEE LT 2V AP,LAT INDICATION: ANNUAL F/U BILAT TKA. COMPARISON: CR XR KNEE LT 2V AP,LAT from 10/23/2021 TECHNIQUE: 2D digital imaging was performed. Two views. FINDINGS: There has been no change in the total knee prosthesis or appearance of the surrounding bone. DATA REPOSITORY: RADIATION DOSE DELIVERED:
--- NOTE | 2022-10-22 08:15 | DI.RAD_ITS ---
Exam(s) XR KNEE RT 2V AP,LAT EXAM: XR KNEE RT 2V AP,LAT INDICATION: ANNUAL F/U BILAT TKA. COMPARISON: CR XR KNEE RT 2V AP,LAT from 10/23/2021 TECHNIQUE: 2D digital imaging was performed. Two views. FINDINGS: There has been no change in the right total knee prosthesis or appearance of the surrounding bone. DATA REPOSITORY: RADIATION DOSE DELIVERED:
== END 2022-10-22 08:30 | disposition home or self-care (01) ==
LOC: DIORS 08:29
PROVIDERS: PCP Family Medicine; Referring Provider Family Medicine; Visit Provider Student in an Organized Health Care Education/Training Program
DX: Z96.653 Presence of artificial knee joint, bilateral (principal)
CPT/HCPCS: 73560

== ENCOUNTER 2022-11-24 08:36 | Outpatient (REF) | payer OTHER, SELFPAY ==
[2022-11-24 08:43] LABS: Source Nasal/Nares
[2022-11-24 09:23] LABS: COVID-19 PCR Negative (Negative)
== END 2022-11-24 08:37 | disposition home or self-care (01) ==
LOC: LBN 08:36
PROVIDERS: PCP Family Medicine; Visit Provider Nurse Practitioner Family
DX: Z20.822 Contact with and (suspected) exposure to COVID-19 (principal); R09.81 Nasal congestion; R19.7 Diarrhea, unspecified; R51.9 Headache, unspecified
CPT/HCPCS: 87635

== ENCOUNTER 2023-03-29 15:46 | Outpatient (REF) | payer OTHER, SELFPAY ==
[2023-03-29 16:01] LABS: Abs Immature Grans 0.01 10^3/uL (0.0-0.06); Absolute Basophil Count 0.03 10^3/uL (0.0-0.2); Absolute Eosinophil Count 0.09 10^3/uL (0.0-0.7); Absolute Lymphocyte Count 1.56 10^3/uL (1.2-3.4); Absolute Monocyte Count 0.61 10^3/uL (0.1-0.8); Absolute Neutrophil Count 3.29 10^3/uL (1.2-6.7); Basophils % 0.5; Eosinophils % 1.6; HCT 36.2 % (36.0-46.0); HGB 12.6 g/dL (11.2-15.7); Immature Grans % 0.2; Lymphocytes % 27.9; MCH 31.3 pg (27.0-33.0); MCHC 34.8 % (32.0-36.0); MCV 90 fL (80-95); MPV 10.3 fL (8.0-11.0); Monocytes % 10.9; Neutrophils % 58.9; Platelet Count 209 10^3/uL (130-400); RBC 4.03 10^6/uL (3.93-5.22); RDW 12.6 % (11.7-14.6); RDW-SD 41.9 fL; WBC 5.59 10^3/uL (4.4-10.8)
[2023-03-29 16:11] LABS: ALT 64 U/L (14-59); AST 48 U/L (15-37); Albumin 3.9 g/dL (3.4-5.0); Alkaline Phosphatase 50 U/L (46-116); Anion Gap 10.1 mmol/L (3-11); BUN 19 mg/dL (7-18); Bilirubin, Total 0.7 mg/dL (0.2-1.0); CO2 26.9 mmol/L (21.0-32.0); CREATININE 0.8 mg/dL (0.55-1.02); Calcium 9.1 mg/dL (8.5-10.1); Chloride 100 mmol/L (98-107); Estimated GFR 85.89 (mL/min/1.73m2); Glucose 83 mg/dL (74-106); Potassium 3.9 mmol/L (3.5-5.1); Sodium 137 mmol/L (136-145); Total Protein 7.5 g/dL (6.4-8.2)
[2023-03-29 16:26] LABS: Bilirubin Negative (Negative); Blood Negative (Negative); Clarity Clear (Clear); Glucose Negative (Negative); Ketones Negative (Negative); Leukocyte Esterase Small (Negative); Nitrite Negative (Negative); Specific Gravity <= 1.005 (1.005-1.025); Urobilinogen 0.2 mg/dL (Up to 0.2); pH 5.5 (5-8)
[2023-03-29 16:38] LABS: Bacteria Rare HPF (Negative); C & S Indicated? Yes; Casts Negative LPF (Negative); Crystals Negative HPF (Negative); Epithelial Cells Rare HPF (Negative); Mucus Negative (Negative); RBC Negative HPF (0-2); WBC 0-2 HPF (0-5)
[2023-03-30 11:59] LABS: C3 Complement 98 mg/dL (81-157); C4 Complement 22 mg/dL (13-39)
[2023-04-01 15:05] LABS: dsDNA Ab, IgG <12.3 IU/mL (<30.0)
== END 2023-03-29 15:47 | disposition home or self-care (01) ==
LOC: LBN 15:46
PROVIDERS: PCP Family Medicine; Visit Provider Internal Medicine
DX: M35.1 Other overlap syndromes (principal); R82.998 Other abnormal findings in urine
CPT/HCPCS: 80053; 81003; 81015; 85025; 86160; 86225; 87086

== ENCOUNTER 2023-10-04 19:28 | Outpatient (REF) | payer OTHER, SELFPAY ==
[2023-10-04 20:01] LABS: Abs Immature Grans 0.01 10^3/uL (0.0-0.06); Absolute Basophil Count 0.02 10^3/uL (0.0-0.2); Absolute Eosinophil Count 0.12 10^3/uL (0.0-0.7); Absolute Lymphocyte Count 1.27 10^3/uL (1.2-3.4); Absolute Monocyte Count 0.67 10^3/uL (0.1-0.8); Absolute Neutrophil Count 3.46 10^3/uL (1.2-6.7); Basophils % 0.4; Eosinophils % 2.2; HCT 36.7 % (36.0-46.0); HGB 12.6 g/dL (11.2-15.7); Immature Grans % 0.2; Lymphocytes % 22.9; MCH 29.9 pg (27.0-33.0); MCHC 34.3 % (32.0-36.0); MCV 87 fL (80-95); MPV 9.9 fL (8.0-11.0); Monocytes % 12.1; Neutrophils % 62.2; Platelet Count 199 10^3/uL (130-400); RBC 4.21 10^6/uL (3.93-5.22); RDW 11.8 % (11.7-14.6); RDW-SD 37.5 fL; WBC 5.55 10^3/uL (4.4-10.8)
[2023-10-04 20:02] LABS: ESR 18 mm/hr (0-30)
[2023-10-04 20:06] LABS: Bilirubin Negative (Negative); Blood Negative (Negative); Clarity Clear (Clear); Glucose Negative (Negative); Ketones Negative (Negative); Leukocyte Esterase Moderate (Negative); Nitrite Negative (Negative); Specific Gravity 1.015 (1.005-1.025); Urobilinogen 0.2 mg/dL (Up to 0.2)
[2023-10-04 20:13] LABS: Bacteria Rare HPF (Negative); C & S Indicated? Yes; Crystals Negative HPF (Negative); Epithelial Cells Few HPF (Negative); Mucus Negative (Negative); Other Cells Rare Transitional (Negative); RBC 0-2 HPF (0-2)
[2023-10-04 20:32] LABS: ALT 29 U/L (14-59); AST 21 U/L (15-37); Albumin 3.9 g/dL (3.4-5.0); Alkaline Phosphatase 42 U/L (46-116); Anion Gap 8.1 mmol/L (3-11); BUN 11 mg/dL (7-18); Bilirubin, Total 0.7 mg/dL (0.2-1.0); C-Reactive Protein 0.05 mg/dL (0.0-0.3); CO2 28.9 mmol/L (21.0-32.0); CREATININE 0.8 mg/dL (0.55-1.02); Calcium 9.4 mg/dL (8.5-10.1); Chloride 101 mmol/L (98-107); Estimated GFR 85.35 (mL/min/1.73m2); Glucose 82 mg/dL (74-106); Potassium 4.1 mmol/L (3.5-5.1); Sodium 138 mmol/L (136-145); Total Protein 7.7 g/dL (6.4-8.2)
[2023-10-06 09:55] LABS: C3 Complement 111 mg/dL (81-157); C4 Complement 24 mg/dL (13-39)
== END 2023-10-04 19:29 | disposition home or self-care (01) ==
LOC: LBN 19:28
PROVIDERS: PCP Family Medicine; Visit Provider Internal Medicine
DX: M35.1 Other overlap syndromes (principal)
CPT/HCPCS: 80053; 85652; 81003; 81015; 85025; 86140; 86160; 87086

== ENCOUNTER 2023-10-17 03:48 | Outpatient (CLI) | payer OTHER, SELFPAY ==
[2023-10-17] MEDS: Inhaler, Assist Device 1 EACH MC (09:14)
[2023-10-17] MEDS: Levalbuterol HFA 15 GM INH 4 PUFF IH (09:14)
--- NOTE | 2023-10-17 14:25 | PFT_ITS ---
Date of service: 10/17/23 Time of Service: 08:03 Pulmonary Function Test Result Indications: MCTD Interpretation Spirometry: There is no airflow obstruction. No significant bronchodilator response. Lung Volumes: There is possibly some hyperinflation Diffusion Capacity: Normal diffusion Airway Pressure: Normal airways resistance Impression Normal pulmonary function but with likely some hyperinflation. This can wally etimes be seen in asthma or emphysema. Note: When compared to 09/10/22, lung function is stable, however now there is hyperinflation present Clinical Correlation therefore is recommended.
== END 2023-10-17 03:49 | disposition home or self-care (01) ==
LOC: RT 03:48
PROVIDERS: PCP Family Medicine; Visit Provider Internal Medicine
DX: M35.1 Other overlap syndromes (principal)
CPT/HCPCS: 94060; 94726; 94729

== ENCOUNTER 2024-01-02 18:13 | Outpatient (REF) | payer OTHER, SELFPAY | END 2024-01-02 18:14 | disposition home or self-care (01) | LOC: NCHCN 18:13 | PROVIDERS: PCP Family Medicine; Visit Provider Nurse Practitioner Adult Health | DX: J02.9 Acute pharyngitis, unspecified (principal) | CPT/HCPCS: 87070 ==

== ENCOUNTER → 2024-01-24 02:39 | Outpatient (CLI) | payer OTHER, SELFPAY ==
--- NOTE | 2024-01-24 06:15 | DI.MAMMO_ITS ---
Exam(s) MAMMO SCREENING EXAM: MAMMO SCREENING CLINICAL HISTORY: screening,z12.39 TECHNIQUE: Bilateral full field digital CC and MLO mammographic images were obtained with 3D tomosyn thesis and utilizing computer aided detection (CAD). COMPARISON: Available for comparison. FINDINGS: Masses/Architectural Distortion: None seen. Microcalcifications: No suspicious pleomorphic-type are seen. Skin Thickening/Nipple Retraction: None. IMPRESSION: 1. No significant interval change with no specific features of malignancy noted. 2. Unless there is more urgent need, screening mammography is recommended, as per [place] [employer] guidelines. BI-RADS Category 1 - Negative Breast Density - Category B - Scattered areas of fibroglandular density Breast density category C or D implies that the patient has dense breast tissue. Dense breast tissue is very common and is not abnormal but dense breast tissue can make it harder to find cancer on a ma mmogram. Also, dense breast tissue may increase their breast cancer risk. This information about the result of the mammogram report was provided to the patient to raise their awareness. Use this report when you speak with the patient about their risks for breast cancer, which includes their family hist ory. At that time, you may recommend for more screening tests (Ultrasound or MRI) as they might be us eful based on their risk. A negative radiographic report should not delay biopsy if a dominant or clinically suspicious mass is present. Up to ten percent of cancers are not identified on mammography. A negative report may reinforce clinical impression. Adenosis and dense breasts may obscure an underlying neoplasm. False positive reports average 6 to 10%. Patient will receive a letter notifying them of these results.
== END ==
PROVIDERS: PCP Family Medicine; Visit Provider Family Medicine
DX: Z12.31 Encounter for screening mammogram for malignant neoplasm of breast (principal)
CPT/HCPCS: 77063; 77067

== ENCOUNTER 2024-12-05 15:04 | Outpatient (REF) | payer OTHER, SELFPAY ==
[2024-12-05 12:07] LABS: Abs Immature Grans 0.02 10^3/uL (0.0-0.06); Absolute Basophil Count 0.04 10^3/uL (0.0-0.2); Absolute Eosinophil Count 0.24 10^3/uL (0.0-0.7); Absolute Lymphocyte Count 1.04 10^3/uL (1.2-3.4); Absolute Monocyte Count 0.73 10^3/uL (0.1-0.8); Absolute Neutrophil Count 3.61 10^3/uL (1.2-6.7); Basophils % 0.7 %; Eosinophils % 4.2 %; HGB 12.8 g/dL (11.2-15.7); Immature Grans % 0.4 %; Lymphocytes % 18.3 %; MCHC 33.7 % (32.0-36.0); MCV 92 fL (80-95); MPV 9.9 fL (8.0-11.0); Monocytes % 12.9 %; Neutrophils % 63.5 %; Platelet Count 192 10^3/uL (130-400); RBC 4.13 10^6/uL (3.93-5.22); RDW 12.3 % (11.7-14.6); RDW-SD 40.8 fL; WBC 5.68 10^3/uL (4.4-10.8)
[2024-12-05 12:08] LABS: ESR 29 mm/hr (0-30)
[2024-12-05 12:10] LABS: Bilirubin Negative (Negative); Blood Negative (Negative); Clarity Clear (Clear); Glucose Negative (Negative); Ketones Negative (Negative); Leukocyte Esterase Negative (Negative); Nitrite Negative (Negative); Urobilinogen 0.2 mg/dL (Up to 0.2)
[2024-12-05 12:17] LABS: Calculated LDL 120 mg/dL (<100); Cholesterol 193 mg/dL (<200); HDL Cholesterol 68 mg/dL (40-60); Triglyceride 27 mg/dL (<150)
[2024-12-05 12:18] LABS: ALT 44 U/L (14-59); AST 28 U/L (15-37); Albumin 4.2 g/dL (3.4-5.0); Alkaline Phosphatase 51 U/L (46-116); Anion Gap 10.1 mmol/L (3-11); BUN 9 mg/dL (7-18); Bilirubin, Total 0.74 mg/dL (0.2-1.0); C-Reactive Protein < 0.50 mg/dL (<or=0.5); CO2 25.9 mmol/L (21.0-32.0); CREATININE 0.8 mg/dL (0.55-1.02); Calcium 8.7 mg/dL (8.5-10.1); Chloride 103 mmol/L (98-107); Estimated GFR 84.82 (mL/min/1.73m2); Glucose 76 mg/dL (74-106); Sodium 139 mmol/L (136-145); Total Protein 7.8 g/dL (6.4-8.2)
[2024-12-06 08:08] LABS: C3 Complement 104 mg/dL (81-157); C4 Complement 26 mg/dL (13-39)
== END 2024-12-05 15:05 | disposition home or self-care (01) ==
LOC: LBN 15:04
PROVIDERS: Nurse Practitioner Adult Health; PCP Family Medicine; Visit Provider Internal Medicine
DX: Z13.220 Encounter for screening for lipoid disorders (principal); M35.1 Other overlap syndromes
CPT/HCPCS: 80053; 80061; 85652; 81003; 85025; 86140; 86160

== ENCOUNTER 2025-01-29 02:12 | Outpatient (CLI) | payer OTHER, SELFPAY ==
--- NOTE | 2025-01-29 | DI.US_ITS ---
APPROVED REPORT EXAM: Comprehensive 2D, Doppler, and color-flow Echocardiogram Patient Location: Out-Patient [employer] Appliance Repairer: Janeth Pulido RT (R) (CT) RD Rhythm: NSR Indications: Mixed connective tissue disorder. Other Information Study Quality: Good Conclusion Normal left ventricular size and function. Ejection fraction is 60 to 65%. Wall motion is normal Both atria are normal in size Normal right ventricular size and systolic function There is no structural or hemodynamically significant valvular disease Wall motion Left Ventricle The left ventricle is normal size. The left ventricular systolic function is normal. The left ventric ular ejection fraction is within the normal range. There is normal left ventricular wall thickness. W all motion scoring is all normal. Left ventricular filling pattern is normal for age. There is no ramiro tricular septal defect visualized. 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 LVEF is 6 0-65%. Prior [facility] echo, 10/22/2020, EF = 55-60% with normal wall motion. Right Ventricle The right ventricle is normal size. The right ventricular systolic function is normal. There is timothy l right ventricular wall thickness. Atria The left atrium size is normal. The right atrium size is normal. The interatrial septum is intact wit h no evidence for an atrial septal defect. Aortic Valve The aortic valve is normal in structure. Best seen subcostally. There is no aortic valvular stenosis. Trace aortic regurgitation. Mitral Valve The mitral valve chordae are thickened. No evidence of mitral valve stenosis. Trace mitral regurgitat ion. Tricuspid Valve The tricuspid valve is normal in structure. There is no tricuspid valve stenosis. Trace tricuspid reg urgitation. Pulmonic Valve The pulmonary valve is normal in structure. Best seen subcostally. There is no pulmonic valvular sten osis. Trace pulmonic regurgitation. Great Vessels The aortic root is normal in size. The pulmonary artery is normal. Best seen subcostally. The ascendi ng aorta is normal in size. IVC is normal in size and collapses >50% with inspiration. Pericardium There is no pericardial effusion. There is no pleural effusion. 2D Dimensions IVSD d PLAX 1.03 cm F: 0.6-1.0 Ao Root d 2.60 cm F: 2.7 - 3.3 LVPW d PLAX 1.14 cm F: 0.6 - 1.0 Ao Asc Diam d 2.69 cm F: 2.3 - 3.1 LVID d PLAX 4.68 cm F: 3.8 - 5.2 Prox Ao Arch 2.5 cm LVDs 3.14 cm F: 2.2 - 3.5 IVC Diam exp d SLAX 1.4 cm LV EF Teichholz 61.3 % FS 32.84 % LV EDV (Teich) 101.1 mL LV ESV (Teich) 39.1 mL M-Mode TAPSE 2.82 cm (M/F) >1.7 LV Volumes - Method of Disks (M[employer]ica's) Single Plane 2D LV Volumes Biplane 2D LV Volumes LV EDV A4C 98.4 mL LV EDV BP 93.32 mL F: 46 - 106 LV ESV A4C 37.3 mL LV ESV BP 34.1 mL LVEF(%) A4C 62.1 % LVEF(%) BP 63.51 % F: 54 - 74 LV EDV A2C 84.4 mL LV EDV BP Index 50.17 mL/m2 F: 29 - 61 LV ESV A2C 29.8 mL SV BP LVEF(%) A2C 64.8 % SV Index RV Strain Global Peak Long. Strain A4C 22.11 Global Peak Long. Strain A4C FW 28.22 LA Volume LA Length A4C 4.9 cm LA Length A2C 4.3 cm LA Area A4C s 13.34 cm2 LA Area A2C s 12.94 cm2 LA Vol A4C A-L 30.87 mL LA Vol A2C A-L 32.68 mL LA Vol Biplane A-L 33.7 mL LA Vol/BSA A4C A-L LA Vol/BSA A2C A-L LA Vol/BSA BP A-L 18.1 mL/m2 LA Vol A4C MOD 27.8 mL LA Vol A2C MOD 30.4 mL LA Vol BP MOD 30.8 mL LV Diastology MV E' medial 0.080 (>0.07 m/s) MV E Vmax 0.68 (0.4-1.3 m/s) MV E/E' MED 8.51 (<14) MV A Vmax 0.65 (0.4-1.3 m/s) MV E' lateral 0.099 (>0.1 m/s) E/A Ratio 1.0 MV E/E' LAT 6.86 (<14) MV E' Average 0.090 m/s MV E/E'(average) 7.59 Aortic Valve LVOT Vmax 0.93 m/s LVOT Peak Grad 3.5 mmHg LVOT VTI 0.210 m LVOT Mean Grad 2.2 mmHg LVOT SV 67.37 mL LVOT Diam s 2.00 cm Mitral Valve MV DT 189 (160-240 msec) Pulm Vein s 0.57 m/s Pulm Vein d 0.42 m/s Pulm Vein a 0.35 m/s Tricuspid Valve RA Pressure 3.00 mmHg TV S' 0.13 m/s
== END 2025-01-29 02:32 ==
LOC: DI 02:12
PROVIDERS: PCP Family Medicine; Visit Provider Internal Medicine Cardiovascular Disease
DX: M35.1 Other overlap syndromes (principal)
CPT/HCPCS: 93306